=== PATIENT | female | born 2000 | race Caucasian/White ===

== ENCOUNTER 2023-12-24 14:57 | Inpatient (IN) | payer BC ==
[2023-12-24 16:59] VITALS: BMI 24.0
[2023-12-24] MEDS ORDERED: BENZOCAINE/MENTHOL (CHLORASEPTIC ) LOZENGE MM PRN (18:08)
[2023-12-24] MEDS ORDERED: POLYETHYLENE GLYCOL (HEALTHYLAX) 3350 17 GM PACKET PO PRN (18:08)
[2023-12-24] MEDS ORDERED: MAGNESIUM HYDROX 2400MG/30ML ORAL SUSPENSION 30 ML CUP PO PRN (18:08)
[2023-12-24] MEDS ORDERED: IBUPROFEN 400 MG TABLET (FP) PO PRN (18:08)
[2023-12-24] MEDS ORDERED: BISMUTH SUBSALICYLATE 524 MG/30 ML PO PRN (18:08)
[2023-12-24] MEDS ORDERED: guaiFENesin 600 MG TABLET.ER (FP) PO PRN (18:08)
[2023-12-24] MEDS ORDERED: NALOXONE (NARCAN) HCL 4 MG/0.1 ML SPRAY NS PRN (18:08)
[2023-12-24] MEDS ORDERED: NICOTINE POLACRILEX 2 MG GUM BUC PRN (18:08)
[2023-12-24] MEDS ORDERED: BENZONATATE 200 MG CAPSULE PO PRN (18:08)
[2023-12-24] MEDS ORDERED: NALOXONE HCL 0.4 MG/ML VIAL IM PRN (18:08)
[2023-12-24] MEDS ORDERED: P-EPHED 60MG/TRIPROLIDI 2.5MG TABLET PO PRN (18:08)
[2023-12-24] MEDS ORDERED: NICOTINE POLACRILEX 2 MG LOZENGE BC PRN (18:08)
[2023-12-24] MEDS ORDERED: LOPERAMIDE HCL 2 MG CAPSULE PO PRN (18:08)
[2023-12-24] MEDS ORDERED: cloNIDine HCL 0.1 MG TABLET PO PRN (18:13)
[2023-12-24] MEDS: methaDONE HCL 10 MG TABLET (FOR DETOX USE ONLY) PO ONE (19:06)
[2023-12-24] MEDS: DICYCLOMINE HCL 10 MG CAPSULE PO PRN (20:55)
[2023-12-24] MEDS: METHOCARBAMOL 500 MG TABLET PO PRN (20:56)
[2023-12-24] MEDS: hydrOXYzine PAMOATE 25 MG CAPSULE (FP) PO PRN (20:56)
[2023-12-24] MEDS: MELATONIN 5 MG TABLETS PO SCH (21:50)
[2023-12-24] MEDS: THIAMINE 100 MG TABLET PO SCH (21:50)
[2023-12-25] MEDS: PRENATAL VITAMINS W/ FOLIC ACID TABLET (FP) PO SCH (09:26)
[2023-12-25] MEDS: IBUPROFEN 600 MG TABLET (FP) PO PRN (09:29)
[2023-12-25] MEDS: ACETAMINOPHEN 325 MG TABLET (FP) PO PRN (14:15)
[2023-12-25 14:41] LABS: HEMATOCRIT 41.7 % (32.4-45.2); HEMOGLOBIN 14.4 GM/dL (10.7-15.3); MCH 33.4 pg (25.7-33.7); MCHC 34.4 g/dl (32.0-36.0); MEAN PLT VOLUME 7.5 fl (7.5-11.1); PLATELET COUNT 422 10^3/uL (134-434); RDW 12.7 % (11.6-15.6); WHITE BLOOD COUNT 8.1 K/mm3 (4.0-10.0)
[2023-12-25 14:54] LABS: POTASSIUM 4.3 mmol/L (3.5-5.1)
[2023-12-25 15:07] LABS: ALBUMIN 3.8 g/dl (3.4-5.0)
[2023-12-25 15:08] LABS: CREATININE 0.8 mg/dL (0.55-1.3)
[2023-12-25 15:09] LABS: BLOOD UREA NITROGEN 8.4 mg/dL (7-18)
[2023-12-25 15:10] LABS: BILIRUBIN,TOTAL 0.5 mg/dL (0.2-1); TOT PROT 7.5 g/dl (6.4-8.2)
[2023-12-25] MEDS: SUVOREXANT 5 MG TABLET PO PRN (22:23)
[2023-12-26] MEDS: ONDANSETRON *ODT* 4 MG TABLET SL PRN (07:06)
[2023-12-26] MEDS: MAG HYDROX/AL HYDROX/SIMETH 30 ML UNIT-DOSE CUP PO PRN (07:07)
[2023-12-26] MEDS ORDERED: MELATONIN 5 MG TABLETS PO SCH (09:22)
[2023-12-26] MEDS: methaDONE HCL 10 MG TABLET (FOR DETOX USE ONLY) PO ONE (09:57)
[2023-12-26] MEDS: METHOCARBAMOL 500 MG TABLET PO PRN (09:57)
[2023-12-26] MEDS: PANTOPRAZOLE 40 MG TABLET PO SCH (09:57)
[2023-12-26 10:12] VITALS: BP 120/77; PULSE 91; RESP 18; TEMP 98.7
[2023-12-26] MEDS: diazePAM 5 MG TABLET PO ONE (11:02)
[2023-12-28] MEDS ORDERED: methaDONE HCL 10 MG TABLET (FOR DETOX USE ONLY) PO ONE (10:00)
== END 2023-12-26 11:25 | disposition left against medical advice (07) | DRG 770 ==
LOC: YASAS 14:57 → Y3N 19:58
PROVIDERS: ADMIT Allergy & Immunology; ATTEND Surgery
PROC: HZ2ZZZZ Detoxification Services for Substance Abuse Treatment (ICD-10-PCS; principal; 2023-12-24)
DX: F11.23 Opioid dependence with withdrawal (principal); F14.20 Cocaine dependence, uncomplicated; F12.10 Cannabis abuse, uncomplicated; F17.290 Nicotine dependence, other tobacco product, uncomplicated; G47.00 Insomnia, unspecified
CPT/HCPCS: 36415; 80053; 80305; 80307; 81025; 85027; 86780; 93005; 93010; Q0162